=== PATIENT | female | born 2000 | race Caucasian/White ===

== ENCOUNTER 2024-05-12 13:55 | Emergency (ER) | payer OTHER ==
[~2024-05-12] VITALS: Ht 152.4 cm; Wt 54.5 kg
[2024-05-12] MEDS: ACETAMINOPHEN 325 MG TABLET PO ONE (14:56)
[2024-05-12 17:30] LABS: COVID AG,FIA SOURCE NASAL SWAB
[2024-05-12 17:53] VITALS: BP 112/70; PULSE 80; RESP 16; TEMP 98.4
[2024-05-12 17:59] LABS: INFLUENZA TYPE A NEGATIVE FOR TYPE A (NEGATIVE); INFLUENZA TYPE B NEGATIVE FOR TYPE B (NEGATIVE)
[2024-05-12 18:02] LABS: RAPID GROUP A STREP NEGATIVE (NEGATIVE)
[2024-05-12 18:10] LABS: SARS-COV2 (COVID) ANTIGEN,FIA Positive (Negative)
[2024-05-12] MEDS ORDERED: NIRM1TAB10 PO (18:18)
== END 2024-05-12 18:37 | disposition home or self-care (01) ==
LOC: EMS 13:55
DX: U07.1 COVID-19 (principal)
CPT/HCPCS: 87430; 87804; 93005; 99284; Z7502; Z7610

== ENCOUNTER 2025-04-17 13:01 | Emergency (ER) | payer MEDICAID, OTHER ==
[~2025-04-17] VITALS: Ht 154.9 cm; Wt 61.4 kg
[~2025-04-17 13:01] MED LIST: NIRM1TAB10 PO
[2025-04-17 13:10] VITALS: BP 110/75; PULSE 77; RESP 18; TEMP 98.6; O2SAT 99
[2025-04-17 13:55] LABS: COVID AG,FIA SOURCE NASAL SWAB
[2025-04-17 14:29] LABS: SARS-COV2 (COVID) ANTIGEN,FIA Negative (Negative)
[2025-04-17 14:30] LABS: INFLUENZA TYPE A NEGATIVE FOR TYPE A (NEGATIVE); INFLUENZA TYPE B NEGATIVE FOR TYPE B (NEGATIVE)
[2025-04-17 14:39] LABS: RAPID GROUP A STREP NEGATIVE (NEGATIVE)
== END 2025-04-17 15:26 | disposition home or self-care (01) ==
LOC: EMS 13:04
DX: J06.9 Acute upper respiratory infection, unspecified (principal); B97.89 Other viral agents as the cause of diseases classified elsewhere; R05.9 Cough, unspecified; Z20.822 Contact with and (suspected) exposure to COVID-19; Z79.899 Other long term (current) drug therapy
CPT/HCPCS: 87430; 87804; 99283